=== PATIENT | male | born 1940 | race Caucasian/White ===

== ENCOUNTER 2022-05-30 14:11 | Emergency (ER) | payer MEDICARE ==
[~2022-05-30] VITALS: Ht 175.3 cm; Wt 77.1 kg
--- NOTE | 2022-05-30 15:29 | NUR ---
PT TRANSPORTED FOR CT AND X RAY
[2022-05-30] MEDS ORDERED: MORPHINE SULFATE INJ 4 MG/ML DISP.SYRIN ONE (16:08)
[2022-05-30] MEDS: MORPHINE SULFATE INJ 2 MG/ML DISP.SYRIN IM ONE (16:27)
[2022-05-30 17:53] VITALS: BP 134/65
== END 2022-05-30 17:58 | disposition home or self-care (01) ==
LOC: ER 14:16
DX: S13.4XXA Sprain of ligaments of cervical spine, initial encounter (principal); S00.03XA Contusion of scalp, initial encounter; R51.9 Headache, unspecified; M54.2 Cervicalgia; E78.5 Hyperlipidemia, unspecified; W22.8XXA Striking against or struck by other objects, initial encounter; Y93.89 Activity, other specified; Y92.89 Other specified places as the place of occurrence of the external cause; Y99.8 Other external cause status
CPT/HCPCS: 99285; 72125; 96372; 73030; 70450; L0172; J2270